=== PATIENT | female | born 1955 | race Caucasian/White ===

== ENCOUNTER → 2017-11-09 | Outpatient (CLI) | payer OTHER ==
[~2017-11-09] MED LIST: OVRAL-21 50 MCG1 TAB PO
== END | disposition home or self-care (01) ==
LOC: RAD 09:58
DX: M17.0 Bilateral primary osteoarthritis of knee (principal)

== ENCOUNTER → 2019-01-25 | Outpatient (CLI) | payer OTHER | END | disposition home or self-care (01) | LOC: RAD 10:34 | DX: M48.07 Spinal stenosis, lumbosacral region (principal); M46.02 Spinal enthesopathy, cervical region; M54.42 Lumbago with sciatica, left side ==

== ENCOUNTER → 2019-02-23 | Outpatient (CLI) | payer OTHER ==
--- NOTE | ~2019-02-23 | EKG ---
[place], [place] ELECTROCARDIOGRAM REPORT NAME: MP VELOZ UNIT #: [id number] ROOM: DOCTOR: EPIPHANY DRAFT REPORT BIRTHDATE: [birth year] [facility] Test Date: 2019-02-23 Test Time: 10:22:06 Pat Name: MP VELOZ Department: Room: Gender: F Gastroenterology Professor: Jennie Saez : 1955 Requested By: SONY BARNES Order Number: [id number] Reading MD: Sushil Howard MD Measurements Intervals [place] Rate: 66 P: 3 WY: 200 QRS: -11 QRSD: 86 T: 111 QT: 415 QTc: 435 Interpretive Statements Sinus rhythm Nonspecific T abnormalities, lateral leads No previous ECG available for comparison Electronically Signed On 03-01-2019 4:12:42 PDT by Sushil Howard MD CM:EKGRPT:ELECTROCARDIOGRAM REPORT [id number] SONY MACK DRAFT REPORT SONY BARNES
== END | disposition home or self-care (01) ==
LOC: CARD 09:13
DX: I51.7 Cardiomegaly (principal)

== ENCOUNTER 2021-03-15 15:09 | Inpatient (IN) | payer OTHER ==
[~2021-03-15] VITALS: Ht 154.9 cm; Wt 108.9 kg
[~2021-03-15 15:09] MED LIST changes: +CYCLOBENZAPRINE5 M3 PO; +GEMFIBROZIL600 MG PO; +HYDR25T PO; +LEVOTHYROXINE125 MCG PO; +LEXAPRO20 MG PO; +LOSARTAN POTASS50 M1 PO
[2021-03-15 15:12] VITALS: BP 110/65
== END 2021-03-15 18:14 | DRG 179 ==
LOC: ICCU 15:09
PROVIDERS: ADMIT Student in an Organized Health Care Education/Training Program; ATTEND Student in an Organized Health Care Education/Training Program
DX: U07.1 COVID-19 (principal); Z66 Do not resuscitate; Z51.5 Encounter for palliative care